=== PATIENT | female | born 1970 | race Caucasian/White ===

== ENCOUNTER 2017-03-18 16:08 | Emergency (ER) | payer OTHER ==
[~2017-03-18] VITALS: Ht 157.5 cm; Wt 89.0 kg
[2017-03-18 16:11] VITALS: Ht 157.5 cm; Wt 89.0 kg
[2017-03-18] MEDS ORDERED: ACETAMINOPHEN 325 MG TAB PO ONE (17:00)
[2017-03-18] MEDS ORDERED: DIPHTH/TET/ACEL PERTUSS (ADULT) 0.5 ML VIAL IM* ONE (17:00)
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
[2017-03-18] MEDS ORDERED: IBUP-1542 PO (17:44)
[2017-03-18] MEDS ORDERED: CYCL5TAB PO ×2 (17:44)
[2017-03-18 17:51] VITALS: BP 118/64
== END 2017-03-18 17:52 | disposition home or self-care (01) ==
LOC: FTE 16:08
DX: S43.402A Unspecified sprain of left shoulder joint, initial encounter (principal); S63.502A Unspecified sprain of left wrist, initial encounter; S50.12XA Contusion of left forearm, initial encounter; V49.40XA Driver injured in collision with unspecified motor vehicles in traffic accident, initial encounter; Z23 Encounter for immunization
CPT/HCPCS: 73090; 73110; 90471; 90715; Z7502; Z7610

== ENCOUNTER 2017-05-12 09:01 | Emergency (ER) | END 2017-05-12 11:46 | disposition home or self-care (01) ==